=== PATIENT | female | born 1980 | race Caucasian/White ===

== ENCOUNTER 2019-07-12 13:56 | Emergency (ER) | payer OTHER ==
[~2019-07-12] VITALS: Ht 165.1 cm; Wt 82.0 kg
[2019-07-12] MEDS ORDERED: FAMOTIDINE 20MG/2ML VIAL IV STA (14:14)
[2019-07-12] MEDS ORDERED: SODIUM CHLORIDE 0.9% 1,000 ML IV ONE (14:14)
[2019-07-12] MEDS ORDERED: ONDANSETRON HCL 4MG/2ML INJ IV STA (14:14)
[2019-07-12] MEDS ORDERED: MORPHINE SULFATE 4 MG/ML CPJ (NOT FOR IM USE) IV STA (14:14)
[2019-07-12 14:58] LABS: CLARITY URINE CLEAR (CLEAR); COLOR URINE YELLOW (YELLOW); KETONES URINE NEGATIVE (NEGATIVE); LEUKOCYTE ESTERASE URINE TRACE (NEGATIVE); NITRITE URINE NEGATIVE (NEGATIVE); OCCULT BLOOD URINE 2+ (NEGATIVE); PH URINE 7.5 (4.5-8.0); PROTEIN URINE NEGATIVE (NEGATIVE); SPECIFIC GRAVITY URINE 1.005 (1.005-1.030)
[2019-07-12 15:03] LABS: BASOPHILS % 0.6 % (0.0-2.0); CHLORIDE 99 mEq/L (98-107); EOSINOPHILS % 1.5 % (0.0-5.0); HEMATOCRIT. 39.5 % (36.0-48.0); HEMOGLOBIN. 13.8 g/dL (12.0-16.0); LYMPHOCYTES % 14.6 % (20.0-50.0); MEAN CORPUSCULAR HEMOGLOBIN 29.2 pg (28.0-32.0); MEAN CORPUSCULAR VOLUME 83.8 fL (81.0-99.0); MEAN PLATELET VOLUME 7.2 fl (7.4-10.4); MONOCYTES % 7.5 % (2.0-8.0); NEUTROPHILS % 75.8 % (40.0-76.0); PLATELET 344 x1000/uL (130-400); RED BLOOD CELL COUNT 4.72 mill/uL (4.2-5.4); RED CELL DISTRIBUTION WIDTH 14.3 % (11.6-14.6)
[2019-07-12 15:18] LABS: HCG SCREEN NEGATIVE
[2019-07-12 15:21] LABS: INR 1.1; PROTHROMBIN TIME 11.2 sec (9.6-11.0)
[2019-07-12] MEDS ORDERED: POTASSIUM CHLORIDE 20MEQ TABLET SR PO ONE (15:30)
[2019-07-12] MEDS ORDERED: IOHEXOL-300 100 ML BOTTLE ONE (15:44)
[2019-07-12] MEDS ORDERED: CEFTRIAXONE SODIUM 250 MG/VIAL IM ONE (16:30)
[2019-07-12] MEDS ORDERED: AZITHROMYCIN 500 MG TABLET PO ONE (16:30)
[2019-07-12] MEDS ORDERED: KETOROLAC 30MG/ML VIAL IV ONE (17:00)
[2019-07-12 19:53] VITALS: BP 93/56
== END 2019-07-12 19:54 | disposition home or self-care (01) ==
LOC: ER 13:56
DX: N73.9 Female pelvic inflammatory disease, unspecified (principal); E87.6 Hypokalemia
CPT/HCPCS: 36415; 74177; 76856; 80053; 81003; 83690; 84703; 85025; 85610; 87210; 87491; 87591; 96372; 96374; 96375; 99284; J0696; J1885; J2270; J2405; J3490; J7030; Q9967

== ENCOUNTER 2022-01-10 19:41 | Emergency (ER) | payer SELFPAY ==
[~2022-01-10] VITALS: Ht 167.6 cm; Wt 84.0 kg
[2022-01-10] MEDS ORDERED: MORPHINE SULFATE 4 MG/ML CPJ (NOT FOR IM USE) IV STA (20:13)
[2022-01-10] MEDS ORDERED: KETOROLAC 30MG/ML VIAL IV STA (20:13)
[2022-01-10] MEDS ORDERED: SODIUM CHLORIDE 0.9% 1,000 ML IV ONE ×2 (20:15)
[2022-01-10 20:38] LABS: BASOPHILS % 0.9 % (0.0-2.0); HEMATOCRIT. 36.3 % (36.0-48.0); HEMOGLOBIN. 12.4 g/dL (12.0-16.0); LYMPHOCYTES % 9.9 % (20.0-50.0); MEAN CORPUSCULAR HEMOGLOBIN 28.1 pg (28.0-32.0); MEAN CORPUSCULAR VOLUME 82.5 fL (81.0-99.0); MEAN PLATELET VOLUME 6.7 fl (7.4-10.4); NEUTROPHILS % 82.2 % (40.0-76.0); PLATELET 545 x1000/uL (130-400); RED CELL DISTRIBUTION WIDTH 14.2 % (11.6-14.6)
[2022-01-10 20:44] LABS: CHLORIDE 97 mEq/L (98-107)
[2022-01-10 20:47] LABS: HCG SCREEN NEGATIVE
[2022-01-10 21:00] LABS: CLARITY URINE CLEAR (CLEAR); COLOR URINE YELLOW (YELLOW); KETONES URINE NEGATIVE (NEGATIVE); LEUKOCYTE ESTERASE URINE TRACE (NEGATIVE); NITRITE URINE NEGATIVE (NEGATIVE); OCCULT BLOOD URINE 2+ (NEGATIVE); PH URINE 8.5 (4.5-8.0); PROTEIN URINE NEGATIVE (NEGATIVE); SPECIFIC GRAVITY URINE 1.013 (1.005-1.030); UROBILINOGEN URINE 0.2 E.U./dL (0.2-1.0)
[2022-01-10] MEDS ORDERED: CEPH500T MT (22:11)
[2022-01-10] MEDS ORDERED: CEFTRIAXONE 1 G PREMIX 50 ML IV ONE (22:15)
[2022-01-10 23:12] VITALS: BP 112/69
== END 2022-01-10 23:14 | disposition home or self-care (01) ==
LOC: ER 19:41
DX: N39.0 Urinary tract infection, site not specified (principal); Z88.6 Allergy status to analgesic agent; Z20.822 Contact with and (suspected) exposure to COVID-19
CPT/HCPCS: 36415; 71045; 76700; 80053; 81003; 83605; 83690; 84703; 85025; 87040; 87426; 96365; 96375; 99285; J0696; J1885; J7030

== ENCOUNTER 2024-03-24 23:11 | Emergency (ER) | payer SELFPAY ==
[~2024-03-24] VITALS: Ht 165.1 cm; Wt 75.0 kg
[~2024-03-24 23:11] MED LIST: CEPH500C2 MT; CEPH500T MT; IBUP-2029 MT
[2024-03-24 23:28] VITALS: O2SAT 100
[2024-03-25] MEDS ORDERED: IBUP-2029 MT (03:22)
[2024-03-25 03:30] VITALS: BP 130/80; PULSE 85; RESP 19; TEMP 98.2
== END 2024-03-25 03:43 | disposition home or self-care (01) ==
LOC: ER 23:45
DX: S60.221A Contusion of right hand, initial encounter (principal); M54.9 Dorsalgia, unspecified; F41.9 Anxiety disorder, unspecified; Z88.8 Allergy status to other drugs, medicaments and biological substances
CPT/HCPCS: 71045; 73120; 99284

== ENCOUNTER 2025-09-04 06:04 | Emergency (ER) | payer SELFPAY ==
[~2025-09-04] VITALS: Ht 160 cm; Wt 66.0 kg
[~2025-09-04 06:04] MED LIST changes: +IBUP-1455 MT; -IBUP-2029 MT
[2025-09-04 06:12] VITALS: O2SAT 99
[2025-09-04] MEDS: ACETAMINOPHEN 325MG TABLET PO ONE (07:15)
[2025-09-04 08:20] VITALS: BP 95/55; PULSE 90; RESP 16; TEMP 36.8; O2SAT 99
[2025-09-04 11:08] LABS: CLARITY URINE CLOUDY (CLEAR); COLOR URINE YELLOW (YELLOW); GLUCOSE URINE NEGATIVE (NEGATIVE); KETONES URINE NEGATIVE (NEGATIVE); LEUKOCYTE ESTERASE URINE 2+ (NEGATIVE); NITRITE URINE NEGATIVE (NEGATIVE); OCCULT BLOOD URINE 2+ (NEGATIVE); PH URINE 6.0 (4.5-8.0); PROTEIN URINE TRACE (NEGATIVE); SPECIFIC GRAVITY URINE 1.018 (1.005-1.030); UROBILINOGEN URINE 1.0 E.U./dL (0.2-1.0)
[2025-09-04 11:23] LABS: BACTERIA URINE 4+; SQUAMOUS EPITHELIAL CELL URINE 2+ /lpf (RARE/1+)
[2025-09-04 11:24] LABS: RBC URINE 0-2 /hpf (0-2)
[2025-09-04] MEDS ORDERED: TOPUD MT (12:45)
[2025-09-04] MEDS ORDERED: IBUP-1523 MT (12:45)
[2025-09-04] MEDS ORDERED: NITR-87 MT (12:45)
== END 2025-09-04 12:54 | disposition home or self-care (01) ==
LOC: ER 06:04
DX: M54.50 Low back pain, unspecified (principal); N39.0 Urinary tract infection, site not specified; Z88.6 Allergy status to analgesic agent
CPT/HCPCS: 72100; 81003; 81025; 99284